=== PATIENT | male | born 1990 | race Caucasian/White ===

== ENCOUNTER 2022-12-17 01:59 | Emergency (ER) | payer MEDICAID ==
[~2022-12-17] VITALS: Ht 182.9 cm; Wt 90.9 kg
[2022-12-17 02:51] VITALS: TEMP 99.5
[2022-12-17] MEDS ORDERED: CEPH-558 PO (02:57)
[2022-12-17] MEDS ORDERED: SULF-261 PO (02:57)
[2022-12-17] MEDS ORDERED: LIDOCAINE/PF 1% 2 ML VIAL IM ONE (03:00)
[2022-12-17] MEDS ORDERED: CefTRIAXone SODIUM 1 GM/VIAL IM ONE (03:00)
[2022-12-17 03:16] VITALS: BP 145/90; PULSE 90; RESP 18
== END 2022-12-17 03:17 | disposition home or self-care (01) ==
LOC: EMS 02:00
DX: L03.115 Cellulitis of right lower limb (principal)
CPT/HCPCS: 99283; 96372; J0696; J3490